=== PATIENT | female | born 1990 | race African-American/Black ===

== ENCOUNTER 2019-03-03 19:46 | Emergency (ER) | payer SELFPAY ==
[~2019-03-03] VITALS: Ht 170.2 cm; Wt 53.6 kg
[2019-03-03 19:51] VITALS: BP 147/62
== END 2019-03-04 00:57 | disposition left against medical advice (07) ==
LOC: ER 20:34
DX: Z53.21 Procedure and treatment not carried out due to patient leaving prior to being seen by health care provider (principal)